=== PATIENT | female | born 1995 | race Hispanic/Latino ===

== ENCOUNTER 2018-10-25 23:58 | Emergency (ER) | payer SELFPAY ==
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
== END 2018-10-26 03:21 | disposition home or self-care (01) ==
LOC: SCSER 23:58
DX: S05.12XA Contusion of eyeball and orbital tissues, left eye, initial encounter (principal); W51.XXXA Accidental striking against or bumped into by another person, initial encounter
CPT/HCPCS: 70486